=== PATIENT | female | born 1960 | race Caucasian/White ===

== ENCOUNTER → 2017-08-27 | Outpatient (CLI) | payer OTHER ==
[~2017-08-27] MED LIST: B12INJ IM; BUPRENORPHINE HC2 MG SL; CONCERTA18 M1 PO; CONCERTA36 M1 PO; CYANOCOBAL1000 MCG/1 IM; CYMBALTA60 MG PO; EXCEDRIN CAPLE1 EACH PO; FIORICET 50-301 EACH PO; LOVASTATIN 20 M20 MG PO; LYRICA 75 MG CA75 MG PO; METHYLPHENIDATE20 M4 PO; MORPHINE SULFAT15 M3 PO; MOTRIN PO; MOVANTIK25 MG PO; MS CONTIN15 MG PO; NEURONTIN 300300 M1 PO; NUCYNTA50 MG PO; ONDANSETRON HCL4 M2 PO; PHENTERMINE H37.5 M1 PO; VITAMIN D250000 UNIT PO; ZOFRAN ODT4 MG PO; [UNRECOGNIZED DRUG - OTHER] RECTAL; valium RECTAL
--- NOTE | 2017-09-11 09:02 | PAINCON ---
[place] [address] PAIN MANAGEMENT CONSULTATION Name: USMAN COLUNGA [id number] Admission: 08/27/17 Attend Phys: Abhi Perales DO Discharge: Date of : 62 Report #: [id number] THIS REPORT FOR: //name// CC: Abhi Michel DO DATE OF SERVICE: 08/27/2017 REFERRING PHYSICIAN: Bee Michel MD CHIEF COMPLAINT: Vaginal pain, bilateral groin pain, chronic pelvic pain. HISTORY OF PRESENT ILLNESS: As you know, the patient is a 57-year-old female with longstanding history of vaginal and groin pain, returning in followup visit for medication management. The patient has sought evaluation and treatment from multiple physicians, ultimately winding up with our clinic due to ongoing need for opioid medications to maintain her work level. Unfortunately, the patient has had to discontinue work due to ongoing pain issues. She returns today in followup visit, somewhat emotionally labile as she is now beginning to experience some concern of finances, now that she is not working. She is attempting to apply for disability and is somewhat stressed about her ongoing treatment options, but has requested refill on medications as she is finding benefit with their use up to 80% improvement in overall pain. She returns requesting refill of these therapies, denying side effects to the treatment. ALLERGIES: No known drug allergies. CURRENT MEDICATIONS: Fioricet 1 tab p.o. t.i.d. p.r.n. headaches, cyanocobalamin 1000 mcg twice a day, duloxetine 60 mg once a day, lovastatin 20 mg per day, methylphenidate 20 mg b.i.d., MS Contin 15 mg t.i.d., ondansetron 4 mg p.r.n., vitamin D 50,000 units per week. SOCIAL HISTORY: The patient reports that she continues to use nicotine gum. Denies IV or illicit drug use. Denies any chronic alcohol use. She is unemployed and unaccompanied today. IMAGING: No new imaging available. PHYSICAL EXAMINATION: VITAL SIGNS: Blood pressure 130/69, pulse 93, respiratory rate 16, unlabored. The patient is 98% on room air. Current temperature 98.2 degrees Fahrenheit. Height 5 feet 4 inches tall, weight 174 pounds, BMI calculated 29.9. GENERAL: Well-developed, well-nourished, well-hydrated 57-year-old female, reporting pain today at level of 8/10. HEENT: Normocephalic, atraumatic. Pupils equal, round, [place] [address] PAIN MANAGEMENT CONSULTATION Name: USMAN COLUNGA [facility] [id number] Admission: 08/27/17 Attend Phys: Abhi Perales DO Discharge: Date of : 62 Report #: [id number] Extraocular muscles are intact. Speech remains fluent. The patient does have somewhat of a flat affect today. EXTREMITIES: Show no clubbing, no cyanosis, no edema. ABDOMEN: There does appear to be some suprapubic pain. No specific trigger points. No guarding, no rebound. ASSESSMENT: 1. Chronic vaginal pain. 2. Chronic pelvic pain. 3. Complicated medical therapy utilizing scheduled medications. 4. Chronic intractable pain. PLAN: 1. The patient returns today in followup visit for medication management. She indicates increasing stress has exacerbated her symptoms of pelvic and vaginal pain. As indicated in her history of present illness, the patient has sought evaluation and treatment from multiple physicians, ultimately winding up with our clinic for pain control due to lack of improvement in symptoms with more conservative treatment options. She requests refill on medications at this time, denying side effects with their use. 2. The patient was provided a refill prescription of MSER 15 mg dose 1 tab p.o. t.i.d., #90, releases of today, 4 weeks from today, 8 weeks from today, 3 months' worth of medication. 3. The patient was provided prescription of ondansetron 4 mg oral dissolving tablet to be used t.i.d. for nausea, given #90 tablets, 2 refills. 4. The patient will restart her duloxetine 60 mg dose 1 tab p.o. b.i.d., #60, two refills. 5. We will see the patient back in followup visit in 3 months for medication therapy. I do recommend the patient seek further evaluation from a urogynecologist for assistance for chronic pelvic and vaginal pain. <ELECTRONICALLY SIGNED> By: Abhi Perales DO 09/11/17 0902 0820 [id number] Perales DO /nt
== END ==
LOC: M.PC 00:56
DX: R10.2 Pelvic and perineal pain (principal); R10.30 Lower abdominal pain, unspecified; G89.29 Other chronic pain; F17.200 Nicotine dependence, unspecified, uncomplicated

== ENCOUNTER → 2017-11-20 | Outpatient (CLI) | payer OTHER ==
--- NOTE | ~2017-11-20 | PAINCON ---
[address] [address] PAIN MANAGEMENT CONSULTATION Name: USMAN COLUNGA [id number] Admission: 11/20/17 Attend Phys: Kizzy Washburn MD Discharge: Date of : 62 Report #: [id number] THIS REPORT FOR: //name// CC: Bee Washburn DATE OF SERVICE: 11/20/2017 ADDENDUM The patient underwent surgery and has had surgical revision for removal of mesh a number of times. I spent approximately 3 different surgeries to help with this problem. There has been some residual mesh in the vaginal wall. This is thought to ____ of the chronic pain, which she is suffering. ALLERGIES: No known drug allergies. CURRENT MEDICATIONS: Fioricet 5/300 40 mg tablets p.r.n. headaches, vitamin B12 intramuscular 1000 mcg, Cymbalta 60 mg 1 p.o. b.i.d., Mevacor 20 mg evening, Vyvanse/methylphenidate for depression, morphine sulfate 15 mg 1 p.o. t.i.d., ondansetron 4 mg t.i.d., and vitamin D2 capsule 50,000 units weekly. PAST MEDICAL HISTORY: Depression, menopausal symptoms, migraine headaches. PAST SURGICAL HISTORY: 1. Hysterectomy with total as well as salpingo-oophorectomy. 2. section. 3. Herniorrhaphy repair. 4. Ablation. 5. Colonoscopy related q.10 years. 6. Excision of cervical mesh x 3. SOCIAL HISTORY: The patient has a history of tobacco use with greater than 20 years smoking history. Denies frequent use of alcoholic beverages. 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 REVIEW OF SYSTEMS: Positive for fatigue, weakness, frequent recurring headaches, nocturia, change of force and stream of urination, incontinence and dribbling, sexual difficulty, frequency and recurrent headaches, nervousness and depression. Pelvic pain, vaginal pain. PAIN CLINIC ASSESSMENT: 1. Pain impact score is 60/70 indicating complete daily interference with activity secondary to pain. No new lab is available at the time of our interview. 2. Pain assessment tool. The patient is not being [place] [address] PAIN MANAGEMENT CONSULTATION Name: USMAN COLUNGA Room: [facility]#: [id number] Admission: 11/20/17 Attend Phys: Kizzy Washburn MD Discharge: Date of : 62 Report #: [id number] 3. Height 5 feet 4 inches, weight 174 pounds, BMI is 29.5. 4. Vital signs: Blood pressure 140/87, heart rate 80, respiratory rate 16, room air saturation 98%, and temperature 98.2. 5. Pain intensity score 8/10. 6. Fall risk. The patient has not fallen in the last 3 months. 7. Pain. The patient is not on a blood thinner. 8. History of hypertension. The patient is not being treated for hypertension. 9. Opioid therapy greater than 6 weeks. The patient is on a contract with the [facility] that she gets her medications from only one source. 10. Risk assessment tool. 11. Functional assessment tool. 12. Recreational drug use. Denies use of recreational drugs. 13. History of tobacco 20 years. 14. Alcohol. Denies frequent use of alcoholic beverages. PHYSICAL EXAMINATION: GENERAL: The patient is a well-developed, well-nourished female. She appears her stated age. She is alert and oriented x 3. Affect is appropriate. Speech is fluent. HEENT: Normocephalic and atraumatic. Extraocular eye muscles intact. Sclerae in nonicteric. Hearing is within normal limits. Mucous membranes are moist. NECK: Without adenopathy or JVD. Good range of motion. HEART: Regular rate without rubs. LUNGS: Clear to auscultation without wheezing or rales. ABDOMEN: Nontender. EXTREMITIES: No clubbing, cyanosis, or edema. Upper extremity is judged to be 5/5 for the major muscle groups with symmetry. No complaint of sensory changes. Lower extremity 5/5 with no complaints of sensory changes. Does have pain and discomfort in the pelvic area, which she rates 8/10. ASSESSMENT: 1. Chronic pelvic pain. 2. Chronic vaginal pain. 3. Chronic intractable pain. 4. History of migraine headaches. 5. Depression. 6. Postmenopausal symptoms. RECOMMENDATIONS: We discussed treatment options with the patient. At this juncture, she finds that her current medications of morphine 15 mg t.i.d., Zofran 4 mg for nausea. Continue to be helpful with her pain and discomfort. At this juncture, we will continue with her current medical regimen. She will call us if she has any problems with her medications. Over the years, this seems to have worked reasonably well, so we will continue with the medication. Questions were asked, were sought and answered from the patient. She will call us if she has any concerns. [address] [address] PAIN MANAGEMENT CONSULTATION Name: USMAN COLUNGA [facility] LexShahlaNorthShahla#: [id number] Admission: 11/20/17 Attend Phys: Kizzy Washburn MD Discharge: Date of : 62 Report #: [id number] We would like to thank you for letting us participate in her care. We hope she continues to improve. By: [id number]. Andres Washburn MD /nt
--- NOTE | 2017-12-11 08:10 | PAINCON ---
[address] [address] PAIN MANAGEMENT CONSULTATION Name: USMAN COLUNGA Room: [facility] Oak[place]#: [id number] Admission: 11/20/17 Attend Phys: Kizzy Washburn MD Discharge: Date of : 62 Report #: [id number] THIS REPORT FOR: //name// CC: Bee Villa DATE OF SERVICE: 11/20/2017 FOLLOWUP COMPLAINT: History of pelvic pain and transvaginal mesh pain. FOLLOWUP HISTORY: The patient is a 57-year-old female who has been followed in the pain clinic because of chronic pelvic and vaginal pain. She has been followed by Dr. Abhi Perales. This is my first visit with the patient. She states that she has a history of transvaginal mesh implantation. There have been problems with this. She has had multiple surgeries for explantation of the mesh. She continues to have some pain and discomfort as a result of chronic irritation. She describes it as a burning type of pain, some gnawing discomfort. 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 She rates it as an 8/10 at this juncture. She has tried a number of medications in the past. Finds that methadone The patient underwent surgery and has had surgical revision for removal of mesh a number of times. I spent approximately 3 different surgeries to help with this problem. There has been some residual mesh in the vaginal wall. This is thought to be the cause of the chronic pain, which she is suffering. ALLERGIES: No known drug allergies. CURRENT MEDICATIONS: Fioricet 5/300 40 mg tablets p.r.n. headaches, vitamin B12 intramuscular 1000 mcg, Cymbalta 60 mg 1 p.o. b.i.d., Mevacor 20 mg evening, Vyvanse/methylphenidate for depression, morphine sulfate 15 mg 1 p.o. t.i.d., ondansetron 4 mg t.i.d., and vitamin D2 capsule 50,000 units weekly. PAST MEDICAL HISTORY: Depression, menopausal symptoms, migraine headaches. PAST SURGICAL HISTORY: Hysterectomy with total as well as salpingo-oophorectomy. section. Herniorrhaphy repair. Ablation. Colonoscopy related q.10 years. Excision of cervical mesh x 3. SOCIAL HISTORY: The patient has a history of tobacco use with greater than 20 [facility] [address] [place] [address] PAIN MANAGEMENT CONSULTATION Name: USMAN COLUNGA Room: [facility]#: [id number] Admission: 11/20/17 Attend Phys: Kizzy Washburn MD Discharge: Date of : 62 Report #: [id number] years smoking history. Denies frequent use of alcoholic beverages. 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 REVIEW OF SYSTEMS: Positive for fatigue, weakness, frequent recurring headaches, nocturia, change of force and stream of urination, incontinence and dribbling, sexual difficulty, frequency and recurrent headaches, nervousness and depression. Pelvic pain, vaginal pain. PAIN CLINIC ASSESSMENT: Pain impact score is 60/70 indicating complete daily interference with activity secondary to pain. No new lab is available at the time of our interview. Pain assessment tool. The patient is not being treated for osteoarthritis. Height 5 feet 4 inches, weight 174 pounds, BMI is 29.5. Vital signs: Blood pressure 140/87, heart rate 80, respiratory rate 16, room air saturation 98%, and temperature 98.2. Pain intensity score 8/10. Fall risk. The patient has not fallen in the last 3 months. Pain. The patient is not on a blood thinner. History of hypertension. The patient is not being treated for hypertension. Opioid therapy greater than 6 weeks. The patient is on a contract with the [facility] that she gets her medications from only one source. Risk assessment tool. Functional assessment tool. Recreational drug use. Denies use of recreational drugs. History of tobacco 20 years. Alcohol. Denies frequent use of alcoholic beverages. PHYSICAL EXAMINATION: GENERAL: The patient is a well-developed, well-nourished female. She appears her stated age. She is alert and oriented x 3. Affect is appropriate. Speech is fluent. HEENT: Normocephalic and atraumatic. Extraocular eye muscles intact. Sclerae in nonicteric. Hearing is within normal limits. Mucous membranes are moist. NECK: Without adenopathy or JVD. Good range of motion. HEART: Regular rate without rubs. LUNGS: Clear to auscultation without wheezing or rales. ABDOMEN: Nontender. EXTREMITIES: No clubbing, cyanosis, or edema. Upper extremity is judged to be 5/5 for the major muscle groups with symmetry. No complaint of sensory changes. Lower extremity 5/5 with no complaints of sensory changes. Does have pain and discomfort in the pelvic area, which she rates 8/10. ASSESSMENT: Chronic pelvic pain. Chronic vaginal pain. Chronic intractable pain. [address] [address] PAIN MANAGEMENT CONSULTATION Name: USMAN COLUNGA Room: [facility] [place]#: [id number] Admission: 11/20/17 Attend Phys: Kizzy Washburn MD Discharge: Date of : 62 Report #: [id number] History of migraine headaches. Depression. Postmenopausal symptoms. RECOMMENDATIONS: We discussed treatment options with the patient. At this juncture, she finds that her current medications of morphine 15 mg t.i.d., Zofran 4 mg for nausea. Continue to be helpful with her pain and discomfort. At this juncture, we will continue with her current medical regimen. She will call us if she has any problems with her medications. Over the years, this seems to have worked reasonably well, so we will continue with the medication. Questions were asked, were sought and answered from the patient. She will call us if she has any concerns. We would like to thank you for letting us participate in her care. We hope she continues to improve. <ELECTRONICALLY SIGNED> By: Kizzy Washburn MD 12/11/17 0810 1556 2045N. Andres Washburn MD /nt
== END ==
LOC: M.PC 03:02
DX: F32.9 Major depressive disorder, single episode, unspecified (principal); G43.909 Migraine, unspecified, not intractable, without status migrainosus; F17.220 Nicotine dependence, chewing tobacco, uncomplicated; R10.2 Pelvic and perineal pain; Z78.0 Asymptomatic menopausal state

== ENCOUNTER → 2018-02-12 | Outpatient (CLI) | payer OTHER ==
--- NOTE | 2018-02-14 15:18 | PAINCON ---
[address] [address] PAIN MANAGEMENT CONSULTATION Name: USMAN COLUNGA Room: [facility] RAE Adin#: [id number] Admission: 02/12/18 Attend Phys: Kizzy Washburn MD Discharge: Date of : 62 Report #: [id number] THIS REPORT FOR: //name// CC: Bee Villa DATE OF SERVICE: 02/12/2018 FOLLOWUP HISTORY: The patient is a 58-year-old female who has been followed in the pain clinic because of chronic pain. As you recall, she has a significant history. She has had surgery on three occasions because of residual pain from vaginal pain. She had mesh placed in the past. She has continued to have a significant amount of pain and discomfort as a result of this. She finds that her current medications are helpful. She has some good days and bad days. Yesterday, she was working with her horse. She has noted some worsening of pain and discomfort today. Is experiencing burning, gnawing discomfort. 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 Rates her pain as a 9/10 today. She has returned today for renewal of her medications. She would like to consider an injection in the area of the pudendal nerves/caudal injection to note whether or not that would be helpful in decreasing her pain. She will give it some thought and consider having this done in the future. ALLERGIES: No known drug allergies. MEDICATIONS: Floricet 5/340 mg tablets p.r.n., headache, vitamin B12 intramuscular 1000 mcg, Cymbalta 60 mg 1 p.o. b.i.d., Mevacor 20 mg in the evening, Vyvanse/methylphenidate for depression, morphine sulfate 15 mg t.i.d., ondansetron 4 mg t.i.d., vitamin D 2 capsules 50,000 units weekly. PAST SURGICAL HISTORY: 1. Hysterectomy with bilateral salpingo-oophorectomy. 2. section. 3. Herniorrhaphy repair. 4. Ablation. 5. Colonoscopy. 6. Excision of cervical mesh x 3. PAIN CLINIC ASSESSMENT: 1. The patient is not being treated for osteoarthritis or rheumatoid arthritis. 2. Height 5 feet 4 inches, weight 172 pounds, BMI is 29.5. 3. Vital signs: Blood pressure 134/79, heart rate 79, respiratory rate 16, room air saturation 95%, temperature 98.2. 4. Pain intensity 10. 5. Fall risk. The patient has not fallen in the last 3 [place] [address] PAIN MANAGEMENT CONSULTATION Name: USMAN COLUNGA Room: [facility]#: [id number] Admission: 02/12/18 Attend Phys: Kizzy Washburn MD Discharge: Date of : 62 Report #: [id number] 6. Blood thinner. The patient is not on blood thinning medication. 7. Hypertension. The patient is not being treated for hypertension. 8. Opioid greater than 6 weeks. The patient is on an opioid contract and receives her medications from 1 source. 9. Risk assessment tool. 10. Functional assessment tool. 11. Recreational drug use. The patient denies use of recreational drugs. 12. Tobacco: The patient has stopped using tobacco, has a 20-year pack history. One pack per day. 13. Alcohol: The patient denies frequent use of alcoholic beverages. PHYSICAL EXAMINATION: GENERAL: The patient is a well-developed, well-nourished white female, appears her stated age. She is alert and oriented x 3. She is appropriate. Speech is fluent. HEENT: Normocephalic, atraumatic. Extraocular eye muscles intact. Sclerae nonicteric. Hearing is within normal limits. Mucous membranes are moist. NECK: Without adenopathy, JVD. Good range of motion. HEART: Regular rate without rubs. LUNGS: Clear to auscultation without rales or wheezing. ABDOMEN: Nontender. MUSCULOSKELETAL: Without significant scoliosis, kyphosis or lordosis. EXTREMITIES: Upper judged to be 5/5 for the manual muscle groups with symmetry. The lower extremity muscle strength 5/5 with no complaints. Pelvic area, the patient complains of pain and discomfort. She describes it as a knife-like irritation in the vaginal areas with pelvic discomfort. Rates that pain as a 9/10. ASSESSMENT: 1. Chronic pelvic pain. 2. Chronic vaginal pain. 3. Chronic intractable pain. 4. History of migraine headaches. 5. Depression. 6. Post-menopausal symptoms. RECOMMENDATIONS: We discussed treatment options with the patient. We will continue with her current medication. A script for her medications of morphine 15 mg 1 p.o. t.i.d. and Zofran 4 mg p.o. t.i.d. p.r.n. have been written. The patient has been given some considerations to pudendal/caudal injection with the hope that this would be helpful in ameliorating her pain and discomfort. She will give this some thought and consider having the procedure done at the next visit. Risks and benefits of the procedure were discussed with the patient. They include infection, increased muscle soreness, headache, worsening of pain [address] [address] PAIN MANAGEMENT CONSULTATION Name: USMAN COLUNGA Room: [facility] [place]#: [id number] Admission: 02/12/18 Attend Phys: Kizzy Washburn MD Discharge: Date of : 62 Report #: [id number] and the patient will continue to give some thought. When she returns, we may proceed with a caudal epidural steroid injection to note its efficacy. <ELECTRONICALLY SIGNED> By: Kizzy Washburn MD 02/14/18 1518 1114 1646N. Andres Washburn MD /[facility]
== END ==
LOC: M.PC 04:59
DX: G89.4 Chronic pain syndrome (principal); R10.2 Pelvic and perineal pain; F32.9 Major depressive disorder, single episode, unspecified; Z78.0 Asymptomatic menopausal state

== ENCOUNTER → 2018-06-11 | Outpatient (CLI) | payer OTHER ==
--- NOTE | 2018-07-03 16:08 | PAINCON ---
[address] [address] PAIN MANAGEMENT CONSULTATION Name: USMAN COLUNGA Room: [facility] LexMary#: [id number] Admission: 06/11/18 Attend Phys: Kizzy Washburn MD Discharge: Date of : 62 Report #: [id number] THIS REPORT FOR: //name// CC: Bee Washburn DATE OF SERVICE: 06/11/2018 FOLLOWUP COMPLAINT: Here for medications. HISTORY: The patient is a 58-year-old female who has been followed in the pain clinic because of chronic pain. As you recall, she has significant history. She has had surgery on three occasions because of residual pain in the vaginal area. Has some irritation involving the pudendal nerve. The patient states that she has pain, which feels as though the labial areas have been sandpaper. Also, notes some internal areas where there is a significant amount of pain and discomfort as well. She notes that the pain can sometimes be less problematic. At this juncture, she rates it as an 8/10. Other activities of daily living can exacerbate the discomfort. If she does certain items she is not sure exactly what the end result would be. Oftentimes can be 1 where the pain is magnified for quite some time. She continues to try to work with her horse. Describes her pain has continued to be a burning, gnawing discomfort. Pain is worse with standing, sitting, walking with activities such as lifting and bending. Feels that her medications are helpful and would like to continue their use. Notes the pain in the distribution of the pudendal nerve as well as some caudal and discomfort as well. ALLERGIES: No known drug allergies. CURRENT MEDICATIONS: Fioricet 5/324 mg tablets, vitamin B12 intramuscular 1000 mcg, Cymbalta 60 mg 1 p.o. b.i.d., Mevacor 20 mg evening, Vyvanse, methylphenidate for depression, morphine sulfate 15 mg t.i.d., ondansetron 4 mg t.i.d., vitamin D2 capsules 50,000 units weekly. PAST MEDICAL HISTORY: 1. Hysterectomy with bilateral salpingo-oophorectomy. 2. section. 3. Hernia repair. 4. Ablation. 5. Colonoscopy. 6. Excision of cervical mass x3. PAIN CLINIC ASSESSMENT/PQRS: 1. The patient is not being treated for osteoarthritis or rheumatoid arthritis. 2. Height 5 feet 4, weight 168 pounds, BMI is 29.0. 3. Vital signs: Blood pressure 138/79, heart rate 108, respiratory rate 16, [facility] [address] [place] [address] PAIN MANAGEMENT CONSULTATION Name: ARNOLDORIANA REYESElaina Story Room: [facility].#: [id number] Admission: 06/11/18 Attend Phys: Kizzy Washburn MD Discharge: Date of : 62 Report #: [id number] room air saturation 96%, temperature 98.2. 4. Pain intensity 03/29. 5. Fall risk. The patient has not fallen in the last 3 months. 6. Blood thinner. The patient is not on a blood thinning medication. 7. Hypertension. The patient is not being treated for hypertension. 8. Opiates greater than 6 weeks. The patient [facility]. 9. Risk assessment tool. 10. Functional assessment tool. 11. Recreational drug use. The patient denies use of recreational drugs. 12. Tobacco: The patient stopped smoking about 2-3 years ago. Has a [id number] smoking history, now chews Nicorette gum 13. Alcohol. The patient denies frequent use of alcoholic beverages. PHYSICAL EXAMINATION PRESENT ILLNESS: GENERAL: The patient is a well-developed, well-nourished white female. Appears her stated age. She is alert and oriented x3. She is appropriate in speech. HEAD, EYES, EARS, NOSE, AND THROAT: Normocephalic, atraumatic. Extraocular eye muscles intact. Sclerae nonicteric. Hearing is within normal limits. Mucous membranes are moist. NECK: Without adenopathy or JVD. HEART: Regular rate without rubs. LUNGS: Clear to auscultation without rales or rhonchi. ABDOMEN: Nontender. Bowel sounds present. MUSCULOSKELETAL: Without significant scoliosis, kyphosis or lordosis. EXTREMITIES: Upper extremity is judged to be 5/5 for the major muscle groups with symmetry. Muscle strength and the lower extremity judged to be 5/5. The patient complains of pain and discomfort with a burning discomfort in the vaginal pubic area with discomfort in the labial area, which is consistent with having had sandpaper scraped on there. Notes some pain and discomfort in the vaginal area as well. ASSESSMENT: 1. Chronic pelvic pain. 2. Chronic vaginal pain. 3. 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 4. History of migraine headaches. 5. Depression. 6. Post-menopausal symptoms. RECOMMENDATIONS: We discussed treatment options with the patient. We will continue with her current medications. A script for medications for morphine has been renewed. The patient finds that Zofran is helpful as well. A script for this has been written. The patient will consider the possibility of continued pudendal nerve/caudal injections in the future. Hopefully, she will find some pain improvement. At this juncture, [place] [address] PAIN MANAGEMENT CONSULTATION Name: USMAN COLUNGA Room: [facility].#: [id number] Admission: 06/11/18 Attend Phys: Kizzy Washburn MD Discharge: Date of : 62 Report #: [id number] her conservative approach. She will follow up in the future as needed. A script for her medications has been rewritten. Morphine sulfate 15 mg 1 p.o. t.i.d., Cymbalta 60 mg 1 p.o. b.i.d. have been written, ondansetron 4 mg p.o. t.i.d. p.r.n. We would like to thank you for letting us to participate in her care. <ELECTRONICALLY SIGNED> By: Kizzy Washburn MD 07/03/18 1608 [id number]. Andres Washburn MD /[facility]
== END ==
LOC: M.PC 05-14 09:20
DX: R10.2 Pelvic and perineal pain (principal); G89.4 Chronic pain syndrome; F32.9 Major depressive disorder, single episode, unspecified; Z86.69 Personal history of other diseases of the nervous system and sense organs

== ENCOUNTER → 2019-02-27 | Outpatient (CLI) | payer OTHER ==
--- NOTE | ~2019-02-27 | PAINCON ---
[address] [address] PAIN MANAGEMENT CONSULTATION Name: USMAN COLUNGA Room: [facility] Adin#: [id number] Admission: 02/27/19 Attend Phys: Kizzy Washburn MD Discharge: Date of : 62 Report #: [id number] THIS REPORT FOR: //name// CC: Bee Washburn DATE OF SERVICE: 02/27/2019 CHIEF COMPLAINT: Chronic pelvic pain. HISTORY: The patient is a 59-year-old female who has been followed in the pain clinic because of chronic pelvic pain. As you may recall, she has had surgeries. She had placement of mesh. That became problematic. She has had surgery to remove the mesh, which is quite problematic. She no longer works because of this chronic pain situation. She rates it as a 9/10 today. States that she is going to see a surgeon in the near future. She has been told that the mesh continues to erode through the vaginal wall. This is quite irritating. Described in the past as being an irritation similar to the sandpaper. This greatly exacerbates and causes problems with activities of daily living. She is unable to get paulette out of working out with her horse. Describes it as a burning and gnawing discomfort. Pain is exacerbated with walking, sitting, standing, lifting, bending as well as when there is stress. It improves with rest. ALLERGIES: No known drug allergies. CURRENT MEDICATIONS: Fioricet 5/325, vitamin B12 intramuscular 1000 mg weekly, Cymbalta 60 mg 1 p.o. b.i.d., Mevacor 20 mg in the evening, Vyvanse, methylphenidate for depression. Morphine sulfate 15 mg t.i.d., ondansetron 4 mg t.i.d., vitamin D capsules 50,000 units weekly. PAIN CLINIC ASSESSMENT/PQRS: 1. The patient is not being treated for osteoarthritis or rheumatoid arthritis. 2. Height 5 feet 4 inches, weight 162 pounds, BMI is 28.0. 3. VITAL SIGNS: Blood pressure 107/74, heart rate 87, respiratory rate 16, room air saturation 97%. 4. Temperature 98.4. 5. Pain intensity 04/29. 6. Fall history. The patient has not fallen in the last 3 months. 7. Blood thinner. The patient is not on a blood thinning medication. 8. Hypertension. The patient is not being treated for hypertension. 9. Opiates greater than 6 weeks. The [facility]. 10. Risk assessment tool. 11. Functional assessment tool. 12. Recreational drug use. The patient denies use of recreational drugs. 13. Tobacco, patient stopped smoking 2-3 years ago. She had a [id number] [facility] [address] [place] [address] PAIN MANAGEMENT CONSULTATION Name: ARNOLDLUIS REYESRAY Story Room: [facility]#: [id number] Admission: 02/27/19 Attend Phys: Kizzy Washburn MD Discharge: Date of : 62 Report #: [id number] smoking history, now chews Nicorette gum. 14. Alcohol: The patient denies frequent use of alcoholic beverages. PHYSICAL EXAMINATION: GENERAL: The patient is a well-developed, well-nourished white female. She appears her stated age. She is alert and oriented x 3. Her affect is appropriate. Speech is fluent. HEENT: Normocephalic, atraumatic. Extraocular eye muscles intact. Sclerae nonicteric. Mucous membranes are moist. NECK: Without adenopathy or JVD. HEART: Regular rate without rhonchi or rubs. LUNGS: Clear to auscultation. MUSCULOSKELETAL: Without significant scoliosis, kyphosis or lordosis. Upper extremity muscle strength is judged to be 5/5 for the major muscle groups in the upper extremity. Muscle strength to lower extremity judged to be 5/5. The patient complains of pain and discomfort of burning sensation in the vaginal area with discomfort in the labial area. Finds this is consistent with sandpaper. Pain and discomfort in the vagina as well. ASSESSMENT: 1. Chronic pelvic pain. 2. Chronic vaginal pain. 3. Chronic intractable pain secondary to irritation of the ____ nerve. 4. History of migraine headaches. 5. Depression. 6. Postmenopausal symptoms. RECOMMENDATIONS: We discussed treatment options with the patient. At this juncture, we will continue with her medications. She is scheduled to see a surgeon in the next few days. She hopes that he will be able to provide her with some benefit. She states that they are only two surgeons in the [facility], which performed the surgery that she needs. She would like to have a procedure here if possible. She feels her medications are working as best they can. We will continue with her complex medical management using narcotics as well as Zofran for nausea, the patient will continue with morphine sulfate 15 mg 1 p.o. t.i.d. to help control her pain. We would like to thank you for letting us participate in her care. We hope she continues to improve. By: 1625 [id number]. Andres Washburn MD /nt
== END ==
LOC: M.PC 05:11
DX: R10.2 Pelvic and perineal pain (principal); G89.29 Other chronic pain; F32.9 Major depressive disorder, single episode, unspecified; Z78.0 Asymptomatic menopausal state

== ENCOUNTER → 2021-05-03 | Outpatient (CLI) | payer OTHER | LOC: M.RAD 11:30 | PROVIDERS: ATTEND Family Medicine | DX: Z12.31 Encounter for screening mammogram for malignant neoplasm of breast (principal) ==